=== PATIENT | male | born 1960 | race African-American/Black ===

== ENCOUNTER 2016-12-05 00:17 | Emergency (ER) | payer SELFPAY ==
[~2016-12-05] VITALS: Ht 170.2 cm; Wt 105.0 kg
[~2016-12-05 00:17] MED LIST: CIPR500T4 PO; DEPA250T; DICY1TAB26 PO; PANT20 PO; SERO300T PO; SUCR1TAB PO
[2016-12-05 00:20] VITALS: BP 181/101; PULSE 67; RESP 16; TEMP 98.5; O2SAT 99
[2016-12-05] MEDS ORDERED: ATROPINE/SCOPOLAM/HYOSCYAM/PB ELIXIR 10 ML CUP PO ONE (01:00)
[2016-12-05] MEDS ORDERED: ASPIRIN 81 MG CHEW TAB PO ONE (01:00)
[2016-12-05] MEDS ORDERED: LIDOCAINE VISCOUS 2% SOLN 15 ML UDC PO ONE (01:00)
[2016-12-05] MEDS ORDERED: ALUMINUM/MAGNESIUM/SIMETH 30 ML CUP PO ONE (01:00)
[2016-12-05] MEDS ORDERED: SODIUM CHLORIDE 0.9% FLUSH 10 ML FLUSH IVF PRN (01:00)
[2016-12-05 01:01] VITALS: O2SAT 99
[2016-12-05 01:04] VITALS: BP_SYST 150; BP_SYST 155; BP_DIAS 100; BP_DIAS 89; PULSE 64; RESP 18; O2SAT 98
[2016-12-05 01:28] LABS: BASOPHIL # 0.1 TH/MM3 (0-0.2); EOSINOPHIL # 0.2 TH/MM3 (0-0.4); EOSINOPHIL % 2.9 % (0.0-4.0); HEMATOCRIT 42.9 % (39.0-51.0); HEMO FLAGS DIFF FINAL; LYMPHOCYTE # 1.9 TH/MM3 (1.0-4.8); MEAN CELL VOLUME 83.6 FL (80.0-100.0); MEAN CORPUSCULAR HGB CONC 33.5 % (32.0-36.0); MONO % 9.4 % (0.0-8.0); NEUT % 52.7 % (16.0-70.0); PLATELET COUNT 186 TH/MM3 (150-450); RED BLOOD COUNT 5.14 MIL/MM3 (4.50-5.90); RED CELL DISTRIBUTION WIDTH 14.3 % (11.6-17.2); WHITE BLOOD COUNT 5.7 TH/MM3 (4.0-11.0)
--- NOTE | 2016-12-05 01:40 | RADRPT ---
EXAM DATE/TIME: 12/05/2016 01:19 [place] COMPARISON: No previous studies available for comparison. INDICATIONS : Chest pain. MEDICAL HISTORY : Hypertension. Diabetes mellitus type II. SURGICAL HISTORY : None. ENCOUNTER: Initial ACUITY: 1 day PAIN SCORE: 6/10 LOCATION: Bilateral chest FINDINGS: A single view of the chest demonstrates the lungs to be symmetrically aerated without evidence of mas s, infiltrate or effusion. The cardiomediastinal contours are unremarkable. Osseous structures are intact. CONCLUSION: 1. No acute findings. Tortuous aorta. Timbo Davis MD on December 05, 2016 at 1:38 Board Certified Radiologist. This report was verified electronically.
[2016-12-05 01:51] LABS: ALT (GPT) 20 U/L (12-78); ANION GAP 7 MEQ/L (5-15); AST (GOT) 13 U/L (15-37); BICARBONATE 27.3 MEQ/L (21.0-32.0); BLOOD UREA NITROGEN 9 MG/DL (7-18); CHLORIDE 105 MEQ/L (98-107); GLOMERULAR FILTRATION RATE 77 ML/MIN (>89); POTASSIUM 3.6 MEQ/L (3.5-5.1); SODIUM (NA) 139 MEQ/L (136-145)
[2016-12-05 01:54] LABS: ALKALINE PHOSPHATASE 94 U/L (45-117); TOTAL BILIRUBIN ADULT 0.2 MG/DL (0.2-1.0)
[2016-12-05 02:00] VITALS: BP 171/96; PULSE 56; RESP 16; O2SAT 99
[2016-12-05] MEDS ORDERED: FAMOTIDINE 20 MG/2 ML VIAL IV PUSH ONE (04:30)
--- NOTE | 2016-12-05 04:32 | PD ---
HPI Chief Complaint: Chest Pain Time Seen by Provider: 00:52 Travel History International Travel<30 days: No Contact w/Intl Traveler<30days: No Traveled to known affect area: No History of Present Illness HPI This is a 56-year-old male who presents to the emergency department with 2 days of constant epigastric pain, sharp, stabbing, moderate severity, associated with some nausea but no vomiting. He denies any shortness of breath, fevers or chills. He's had pain like this once before but he was never told what it was. PFSH Past Medical History Diabetes: Yes Patient Takes Glucophage: Yes (none for 3 months) Diminished Hearing: No Tetanus Vaccination: < 5 Years Past Surgical History Other Surgery: Yes (right inguinal hernia repair) Social History Alcohol Use: Yes (daily) Tobacco Use: Yes Substance Use: No Allergies-Medications (Allergen,Severity, Reaction): Coded Allergies: No Known Allergies (Unverified , 10/11/15) Reported Meds & Prescriptions Reported Meds & Active Scripts Active No Active Prescriptions or Reported Medications Review of Systems Except as stated in HPI: all other systems reviewed are Neg Physical Exam Narrative GENERAL:Well appearing, no acute distress SKIN: Focused skin assessment warm and dry. HEAD: Atraumatic. Normocephalic. EYES: Pupils equal and round. No injection or drainage. ENT: Moist mucous membranes NECK: Trachea midline. CARDIOVASCULAR: Regular rate and rhythm. No murmur appreciated. RESPIRATORY: Clear to auscultation. Breath sounds equal bilaterally. GASTROINTESTINAL: Abdomen soft, tender to palpation in the epigastrium with no rebound or guarding. MUSCULOSKELETAL: No obvious deformities. NEUROLOGICAL: Awake and alert. No obvious cranial nerve deficits. Moving all extremities. PSYCHIATRIC: Appropriate mood and affect; insight and judgment normal. Data Data Last Documented VS Vital Signs Date Time Temp Pulse Resp B/P (MAP) Pulse Ox O2 Delivery O2 Flow Rate FiO2 12/05/16 01:04 64 18 150/89 (109) 98 Room Air 155/100 (118) 12/05/16 00:20 98.5 Orders Orders Electrocardiogram (12/05/16 00:57) Complete Blood Count With Diff (12/05/16 00:57) Comprehensive Metabolic Panel (12/05/16 00:57) Troponin I (12/05/16 00:57) Chest, Single Ap (12/05/16 00:57) Ecg Monitoring (12/05/16 00:57) Bilateral Bp Monitoring (12/05/16 00:57) Iv Access Insert/Monitor (12/05/16 00:57) Oximetry (12/05/16 00:57) Oxygen Administration (12/05/16 00:57) Aspirin Chew (Aspirin Chew) (12/05/16 01:00) Sodium Chloride 0.9% Flush (Ns Flush) (12/05/16 01:00) Al-Mag Hy-Si 40-40-4 Mg/Ml Liq (Mag-Al P (12/05/16 01:00) Lidocaine 2% Viscous (Xylocaine 2% Visco (12/05/16 01:00) Uhlnq-Meeshj-Tujbic-Pb Liq ( Liq (12/05/16 01:00) Lipase (12/05/16 00:58) Troponin I (12/05/16 04:15) Famotidine Inj (Pepcid Inj) (12/05/16 04:30) Labs Laboratory Tests Test 12/05/16 01:05 12/05/16 04:30 White Blood Count 5.7 TH/MM3 Red Blood Count 5.14 MIL/MM3 Hemoglobin 14.4 GM/DL Hematocrit 42.9 % Mean Corpuscular Volume 83.6 FL Mean Corpuscular Hemoglobin 28.0 PG Mean Corpuscular Hemoglobin Concent 33.5 % Red Cell Distribution Width 14.3 % Platelet Count 186 TH/MM3 Mean Platelet Volume 8.9 FL Neutrophils (%) (Auto) 52.7 % Lymphocytes (%) (Auto) 34.0 % Monocytes (%) (Auto) 9.4 % Eosinophils (%) (Auto) 2.9 % Basophils (%) (Auto) 1.0 % Neutrophils # (Auto) 3.0 TH/MM3 Lymphocytes # (Auto) 1.9 TH/MM3 Monocytes # (Auto) 0.5 TH/MM3 Eosinophils # (Auto) 0.2 TH/MM3 Basophils # (Auto) 0.1 TH/MM3 CBC Comment DIFF FINAL Differential Comment Blood Urea Nitrogen 9 MG/DL Creatinine 1.19 MG/DL Random Glucose 117 MG/DL Total Protein 7.3 GM/DL Albumin 3.5 GM/DL Calcium Level 8.7 MG/DL Alkaline Phosphatase 94 U/L Aspartate Amino Transf (AST/SGOT) 13 U/L Alanine Aminotransferase (ALT/SGPT) 20 U/L Total Bilirubin 0.2 MG/DL Sodium Level 139 MEQ/L Potassium Level 3.6 MEQ/L Chloride Level 105 MEQ/L Carbon Dioxide Level 27.3 MEQ/L Anion Gap 7 MEQ/L Estimat Glomerular Filtration Rate 77 ML/MIN Troponin I LESS THAN 0.02 NG/ML LESS THAN 0.02 NG/ML Lipase 130 U/L MDM Medical Decision Making Medical Screen Exam Complete: Yes Emergency Medical Condition: Yes Interpretation(s) afebrile, no tachycardia, hypertension no leukocytosis electrolytes within normal limits troponin normal x2 lipase normal cxr: no acute process EKG: Normal sinus rhythm, intraventricular conduction delay similar to October Differential Diagnosis Gastritis, cholelithiasis, pancreatitis, cholecystitis or acute coronary syndrome Narrative Course This is a 56-year-old male who presents to the emergency department with epigastric discomfort. He was tender in the epigastrium on exam. He was placed on a monitor and an IV was established. EKG is nonischemic and unchanged from prior EKG last year. Labs are obtained which are reassuring including 2 sets of troponin and a lipase which was normal. Patient was given a GI cocktail and his symptoms improved. I suspect the patient has gastritis. I think given this is his second episode he should follow-up with a stitcher hand. Patient was discharged on Zantac and Carafate. Diagnosis Primary Impression: Gastritis Qualified Codes: K29.00 - Acute gastritis without bleeding Referrals: [facility] Patient Instructions: General Instructions Additional Instructions: If you develop severe or worsening abdominal pain, fever>100.4, persistent vomiting or inability to eat or drink return to the emergency department immediately. Follow up with your primary care physician in 1-2 days for a check-up. Med/Other Pt SpecificInfo: Prescription(s) given Scripts Sucralfate (Carafate) 1 Gram Tab 1 GM PO TID for Ulcer Prevention, #90 TAB 0 Refills On empty stomach Prov: Sherita Ayala MD 12/05/16 Ranitidine (Ranitidine) 150 Mg Tab 150 MG PO BID for Heartburn Management, #60 TAB 0 Refills Prov: Sherita Ayala MD 12/05/16 Disposition: 01 DISCHARGE HOME Condition: Stable Sherita Ayala MD Dec 05, 2016 04:32
[2016-12-05 05:00] VITALS: BP 158/91; PULSE 58; RESP 16; O2SAT 99
[2016-12-05] MEDS ORDERED: CARA1TAB6 PO (05:45)
[2016-12-05] MEDS ORDERED: RANI150T PO (05:45)
--- NOTE | 2016-12-05 07:05 | EKG ---
Date Performed: 12/05/2016 Time Performed: 00:37:59 PTAGE: 56 years EKG: Sinus rhythm NONSPECIFIC INTRAVENTRICULAR CONDUCTION DELAY NONSPECIFIC T-WAVE ABNORMALITY BORDERLINE ECG PREVIOUS TRACING : 10/11/2015 14.25 No significant change from previous tracing noted. DOCTOR: Arnoldo Sam Interpretating Date/Time 12/05/2016 07:03:58
== END 2016-12-05 06:06 | disposition home or self-care (01) ==
LOC: NEPE 00:17
DX: K29.00 Acute gastritis without bleeding (principal); R94.31 Abnormal electrocardiogram [ECG] [EKG]; E11.9 Type 2 diabetes mellitus without complications; Z72.0 Tobacco use
CPT/HCPCS: 71010; 80053; 83690; 84484; 85025; 93005; 96374